=== PATIENT | female | born 1995 | race Caucasian/White ===

== ENCOUNTER 2017-05-20 13:20 | Inpatient (IN) | payer BC ==
[2017-05-20] MEDS ORDERED: OXYTOCIN/DEXTROSE 5%-WATER 30 UNITS/500 ML BAG IV ONE ×2 (13:23→19:28)
[2017-05-20] MEDS ORDERED: RINGERS SOLUTION,LACTATED 1,000 ML IV ONE ×2 (13:23)
[2017-05-20] MEDS ORDERED: LIDOCAINE HCL 50 ML VIAL PERI PRN (13:23)
[2017-05-20] MEDS ORDERED: DEXTROSE 5%-LACTATED RINGERS 1,000 ML IV PRN (13:23)
[2017-05-20] MEDS ORDERED: RINGERS SOLUTION,LACTATED 1,000 ML IV PRN (13:23)
[2017-05-20] MEDS ORDERED: ONDANSETRON HCL/PF 2 MG/ML VIAL IV PRN ×2 (13:23→14:34)
[2017-05-20] MEDS ORDERED: PENICILLIN G POTASSIUM 5 MILLIONUNT in DEXTROSE 5 % IN WATER 100 ML IV ONE ×2 (13:23)
[2017-05-20] MEDS ORDERED: ACETAMINOPHEN 500 MG TABLET PO ONE (13:59)
[2017-05-20] MEDS ORDERED: NALOXONE HCL 1 MG/1 ML SYRG IV PRN (14:34)
[2017-05-20] MEDS ORDERED: BUPIVACAINE HCL/0.9 % NACL/PF 250 ML EP PRN (14:34)
[2017-05-20] MEDS ORDERED: fentaNYL CITRATE/PF 50 MCG/ML AMPUL IT SCH (14:45)
[2017-05-20] MEDS ORDERED: BUTORPHANOL TARTRATE 2 MG/ML VIAL IV PRN (14:54)
[2017-05-20] MEDS ORDERED: BUTORPHANOL TARTRATE 2 MG/ML VIAL ONE (15:08)
--- NOTE | 2017-05-20 15:50 | OR ---
Anesthesia Procedure Note - Anesthesia Procedure Note Narrative: Vital Signs - Last Taken Temp 36.5 C 05/20/17 15:20 Pulse 94 05/20/17 15:20 Resp 20 05/20/17 15:20 BP 158/89 05/20/17 15:20 Pulse Ox 96 05/20/17 15:20 05/20/17 15:50 ANESTHESIA PROCEDURE NOTE Date of Procedure: 05/20/2017 Time of procedure: 1530. Performed by: Raghu Ferreira CRNA Ultrasonographer: None. Preprocedure diagnosis: Active labor. Post procedure diagnosis: Same. Procedure: Insertion of labor epidural. Indications: The patient is a 21 -year-old prima para female in active labor requesting labor epidural for pain management. Findings: See below. Details of the procedure: The patient was placed in a sitting position. Back was prepped with DuraPrep. Patient was then draped in a sterile fashion. Lidocaine 1% was infiltrated to the skin and subcutaneous tissues at the level of the L3 4 interspace. The epidural space was identified using a 18-gauge Tuohy needle with [id number] technique. 20 mcg fentanyl was given intrathecally using a 27 ga. spinal needle. Epidural catheter was inserted without difficulty. Negative test dose was elicited using 5 mL of 1.5% preservative-free lidocaine plus epinephrine 1 200,000. The epidural catheter was then taped and secured in place. EBL: Minimal. Fluids: N/A. Specimen: N/A. Post procedure condition: The patient tolerated the procedure well. No complications were noted. Thank you for this consultation. Benson CRNA
[2017-05-20] MEDS ORDERED: PENICILLIN G POTASSIUM 2.5 MILLIONUNT in DEXTROSE 5 % IN WATER 100 ML IV SCH ×2 (17:24)
--- NOTE | 2017-05-20 17:41 | PN ---
Subjective Subjective Narrative: comfortable after epidural Objective Objective Narrative: /-1, forebag broken with clear fluid FHTs: 150's, mod leonor, + accels, no decel [place]: q2-3min Cont. current plan and anticipate . Peds updated. - Vitals Vitals: Last Vital Signs Temp 36.5 C 05/20/17 15:20 Pulse 94 05/20/17 15:20 Resp 20 05/20/17 15:20 BP 158/89 05/20/17 15:20 Pulse Ox 96 05/20/17 15:20 Cauti Physician Documentation - Urinary Catheter Management Urethral (Russell) Date of Insertion: 05/20/17 Time of Insertion: 15:55
[2017-05-20] MEDS ORDERED: GLYCERIN/WITCH HAZEL LEAF 40 APPL BOX TP PRN (19:28)
[2017-05-20] MEDS ORDERED: oxyCODONE HCL/ACETAMINOPHEN 1 TAB TABLET PO PRN (19:28)
[2017-05-20] MEDS ORDERED: HYDROCORTISONE 30 APPL TUBE TP PRN (19:28)
[2017-05-20] MEDS ORDERED: BISACODYL 10 MG SUPP.RECT RC PRN (19:28)
[2017-05-20] MEDS ORDERED: BENZOCAINE/MENTHOL 81 SPRAY CAN TP PRN (19:28)
--- NOTE | 2017-05-20 19:33 | OR ---
Operative Report - Dictated Report Narrative: Spontaneous Vaginal Delivery with a problem of unknown duration Viable female with APGARS of 9 at 1 minute and 9 at 5 minutes. Presentation was MANJIT at 1858. No nuchal cord was noted. Patient delivered over 2 contractions. Weight: 6 pounds 0.8 ounces Placenta was delivered spontaneously and intact. This will be sent to pathology. A first-degree midline vaginal laceration that was repaired and a right first- degree labial laceration that was repaired. Estimated blood loss: 200 ml Mother and baby tolerated delivery well. History for Definition: * The number of deliveries resulting in a live the patient experienced prior to current hospitalization * The previous delivery of live twins or any live multiple gestation is considered one live event. *If primagravida or nulliparous is documented select zero for the number of previous live births. Live Events: 0
[2017-05-20] MEDS: oxyCODONE HCL/ACETAMINOPHEN 1 TAB TABLET PO PRN (23:05)
--- NOTE | 2017-05-20 23:58 | OR ---
Anesthesia Procedure Note - Anesthesia Procedure Note Narrative: Vital Signs - Last Taken Temp 37.5 C 05/20/17 22:45 Pulse 119 H 05/20/17 22:05 Resp 18 05/20/17 22:45 BP 136/88 05/20/17 22:45 Pulse Ox 98 05/20/17 22:45 O2 Oxygen Delivery Method Room Air 05/20/17 23:56 ANESTHESIA PROCEDURE NOTE Date of procedure: 05/20/2017. Time of procedure: 2330. Performed by: Raghu Ferreira CRNA Retina Subspecialist: Alejandra Montgomery RN . Preprocedure diagnosis: Previous . Block for postop analgesia. Post procedure diagnosis: Same. Procedure:TAP Block Indications: Postoperative analgesia. Findings: Ultrasound-guided bilateral TAP block. 20 mL of 0.25% Marcaine with epinephrine 1 200,000 was given per side. 22-gauge Stimuplex regional block needle and ChloraPrep prep was used. Images retained and stored in radiology database EBL: Minimal. Fluids: N/A. Specimen: N/A. Post procedure condition: The patient tolerated the procedure well. No complications were noted. Thank you for this consultation Raghu Ferreira CRNA
[2017-05-21] MEDS: DOCUSATE SODIUM 100 MG CAPSULE PO SCH ×3 (02:58→20:25)
[2017-05-21] MEDS: IBUPROFEN 800 MG TABLET PO PRN (03:08)
[2017-05-21] MEDS: oxyCODONE HCL/ACETAMINOPHEN 1 TAB TABLET PO PRN ×3 (08:55→18:33)
[2017-05-21] MEDS ORDERED: RHO(D) IMMUNE GLOBULIN 300 MCG DISP.SYRIN IM ONE (09:00)
--- NOTE | 2017-05-21 09:43 | PN ---
Progess Note - Interim Narrative: 05/21/17 09:41 progress note Subjective: The patient is doing well. She is ambulating, voiding, tolerating by mouth. She has minimal pain and moderate lochia. Objective: General: No acute distress Abdomen: Soft, nontender, fundus is firm just below the umbilicus Extremities: minimal edema, nontender to palpation Assessment and plan: day 1 Feeding: breast Pain: Controlled with by mouth medication Routine care.
[2017-05-21] MEDS ORDERED: RHO(D) IMMUNE GLOBULIN 300 MCG DISP.SYRIN IM PRN (12:46)
[2017-05-22] MEDS: SENNOSIDES 8.6 MG TABLET PO PRN ×2 (02:05→15:07)
[2017-05-22] MEDS: DOCUSATE SODIUM 100 MG CAPSULE PO SCH ×2 (07:59→21:03)
--- NOTE | 2017-05-22 12:28 | PN ---
Progess Note - Interim Narrative: 05/22/17 12:26 progress note Subjective: The patient is doing well. She is ambulating, voiding, tolerating by mouth. She has minimal pain and moderate lochia. Objective: General: No acute distress Abdomen: Soft, nontender, fundus is firm just below the umbilicus Extremities: minimal edema, nontender to palpation Assessment and plan: day 2 Feeding: Breast Pain: Controlled with by mouth medication Routine care.
[2017-05-22] MEDS: IBUPROFEN 800 MG TABLET PO PRN ×2 (15:02→23:50)
[2017-05-22 19:35] VITALS: BP 127/58
[2017-05-22] MEDS: oxyCODONE HCL/ACETAMINOPHEN 1 TAB TABLET PO PRN (23:50)
== END 2017-05-22 23:55 | disposition home or self-care (01) | DRG 774 ==
LOC: OB 13:20 → MS 05-21 18:07
PROVIDERS: ADMIT Obstetrics & Gynecology Gynecologic Oncology; ATTEND Obstetrics & Gynecology Gynecologic Oncology
PROC: 10E0XZZ Delivery of Products of Conception, External Approach (ICD-10-PCS; principal; 2017-05-20)
PROC: 4A1HXCZ Monitoring of Products of Conception, Cardiac Rate, External Approach (ICD-10-PCS; 2017-05-20)
PROC: 0HQ9XZZ Repair Perineum Skin, External Approach (ICD-10-PCS; 2017-05-20)
PROC: 00HU33Z Insertion of Infusion Device into Spinal Canal, Percutaneous Approach (ICD-10-PCS; 2017-05-20)
DX: O99.824 Streptococcus B carrier state complicating childbirth (principal); O99.834 Other infection carrier state complicating childbirth; O98.32 Other infections with a predominantly sexual mode of transmission complicating childbirth; A60.04 Herpesviral vulvovaginitis; O70.0 First degree perineal laceration during delivery; D64.9 Anemia, unspecified; Z79.899 Other long term (current) drug therapy; Z3A.36 36 weeks gestation of pregnancy; Z37.0 Single live birth
CPT/HCPCS: 59025; 85460; 88307; J2405; J2790

== ENCOUNTER 2018-07-17 06:00 | Inpatient (IN) ==
[~2018-07-17 06:00] MED LIST: LIDOCAINE HCL 50 ML VIAL PERI PRN; NALBUPHINE HCL 10 MG/ML AMPUL IV PRN; ONDANSETRON HCL/PF 2 MG/ML VIAL IV PRN; OXYTOCIN/DEXTROSE 5%-WATER 30 UNITS/500 ML BAG IV ONE; PENICILLIN G POTASSIUM 2.5 MILLIONUNT in DEXTROSE 5 % IN WATER 100 ML IV SCH; PENICILLIN G POTASSIUM 5 MILLIONUNT in DEXTROSE 5 % IN WATER 100 ML IV ONE; RINGER'S SOLUTION,LACTATED 1,000 ML IV PRN
[2018-07-17] MEDS ORDERED: OXYTOCIN/DEXTROSE 5%-WATER 30 UNITS/500 ML BAG IV ONE ×2 (06:20→13:20)
[2018-07-17] MEDS ORDERED: ONDANSETRON HCL/PF 2 MG/ML VIAL IV PRN ×2 (06:20→09:28)
[2018-07-17] MEDS ORDERED: NALBUPHINE HCL 10 MG/ML AMPUL IV PRN ×2 (06:20)
[2018-07-17] MEDS ORDERED: LIDOCAINE HCL 50 ML VIAL PERI PRN (06:20)
[2018-07-17] MEDS ORDERED: PENICILLIN G POTASSIUM 5 MILLIONUNT in DEXTROSE 5 % IN WATER 100 ML IV ONE ×2 (06:30)
[2018-07-17] MEDS: RINGER'S SOLUTION,LACTATED 1,000 ML IV PRN ×2 (06:40→10:37)
--- NOTE | 2018-07-17 08:55 | HP ---
Chief Complaint - Chief Complaint Date of Service: 07/17/18 Time of Service: 08:51 Chief Complaint: labor induction History of Present Illness: The patient presents to L&D for an elective IOL. She is petty with pitocin but is not feeling her ctx. She denies vaginal bleeding or loss of fluid. Fetus is active. Medical History (Last Reviewed 06/09/18 @ 11:35 by Anai Ruffin) GERD (gastroesophageal reflux disease) Onset Date: ~2017 HSV (herpes simplex virus) infection Onset Date: ~12/20/17 History of delivery, currently Onset Date: ~12/20/17 Short interval between pregnancies affecting , antepartum Onset Date : ~12/20/17 Elevated blood pressure affecting , antepartum Onset Date: ~11/10/16 Metacarpal bone fracture Onset Date: ~2002 Anemia Onset Date: ~03/24/17 Surgical History: Surgical History (Last Reviewed 06/09/18 @ 11:35 by Anai Ruffin) History of appendectomy Onset Date: ~10/16/14 Family History: Family History (Last Reviewed 06/09/18 @ 11:35 by Anai Ruffin) Father Cancer Grandfather Diabetes Cancer Grandfather Cancer Mother Alive and well Sister History of heart murmur in childhood Social History: Preferred Language Indonesian Abuse History No History of abuse Psych History No pertinent hx Review Of Systems (GEN) - Review of Systems EENTM: Present: No Symptoms Reported Respiratory: Present: No Symptoms Reported Cardiac: Present: No Symptoms Reported Abdominal: Present: No Symptoms Reported Genitourinary: Present: No Symptoms Reported Musculoskeletal: Present: No Symptoms Reported Neurological: Present: No Symptoms Reported Skin: Present: No Symptoms Reported Endocrine: Present: No Symptoms Reported Immunizations: IMMUNIZATION HX Immunizations Up to Date Yes History of Influenza Vaccine Yes Allergies/Adverse Reactions: Allergies Allergy/AdvReac Type Severity Reaction Status Date / Time No Known Allergies Allergy Verified 07/05/18 15:44 Home Medications: HOME MEDICATIONS Vits96/Iron Fum/Folic [ S] 1 tab PO DAILY 05/20/17 [Last Taken 06/28/18 08:00] famotidine 20 mg tablet 20 mg PO BID #60 tab 06/28/18 [Last Taken 07/17/18 02:30 ] valacyclovir 1 gram tablet 1,000 mg PO DAILY #30 tab 06/28/18 [Last Taken 02:30] Acetaminophen [Tylenol] 1,000 mg PO QPM PRN 06/30/18 [Last Taken 07/17/18 02:30] Exam - Exam Vital Signs: Vital Signs - Last Taken Temp 36.5 C 07/17/18 07:53 Pulse 104 H 07/17/18 07:53 Resp 18 07/17/18 07:53 BP 120/57 07/17/18 07:53 Pulse Ox 99 07/17/18 07:53 Constitutional: Present: Alert, Oriented x3, Cooperative, No distress Respiratory: Present: chest non-tender, lungs clear, normal breath sounds, no respiratory distress Cardiovascular/Chest: Present: normal peripheral pulses, regular rate, rhythm, no murmur Abdomen: Present: Normal bowel sounds, soft, nontender Extremity: Present: normal range of motion, non-tender, no calf tenderness Skin Exam: Present: normal color, warm/dry, no cyanosis Appearance: Present: appropriate appearance Eye contact: Present: cooperative Thoughts: Present: normal thought pattern Diagnostic Studies: Laboratory Results Blood Type O Negative 07/17/18 06:10 Antibody Screen Negative 07/17/18 06:10 Assessment/Plan - Narrative Narrative: Elective IOL at 39 weeks GBS prophylaxis
--- NOTE | 2018-07-17 08:56 | PN ---
Progess Note - Interim Date: 07/17/18 Time: 08:55 Narrative: 07/17/18 08:55 Pt is comfortable AROM for clear fluid Fetus is cat 1 Continue to titrate pitocin up
[2018-07-17] MEDS ORDERED: BUPIVACAINE HCL/0.9 % NACL/PF 250 ML EP PRN (09:28)
[2018-07-17] MEDS ORDERED: NALOXONE HCL 1 MG/1 ML SYRG IV PRN (09:28)
[2018-07-17] MEDS ORDERED: fentaNYL CITRATE/PF 50 MCG/ML AMPUL IT SCH (09:30)
--- NOTE | 2018-07-17 09:42 | ANES ---
Anesthesia Pre Procedure Eval Vitals/Labs: Last Vital Signs Temp 36.5 C 07/17/18 07:53 Pulse 104 H 07/17/18 07:53 Resp 18 07/17/18 07:53 BP 120/57 07/17/18 07:53 Pulse Ox 99 07/17/18 07:53 HOME MEDICATIONS Vits96/Iron Fum/Folic [ S] 1 tab PO DAILY 05/20/17 [Last Taken 06/28/18 08:00] famotidine 20 mg tablet 20 mg PO BID #60 tab 06/28/18 [Last Taken 07/17/18 02:30 ] valacyclovir 1 gram tablet 1,000 mg PO DAILY #30 tab 06/28/18 [Last Taken 02:30] Acetaminophen [Tylenol] 1,000 mg PO QPM PRN 06/30/18 [Last Taken 07/17/18 02:30] Allergies/Adverse Reactions: Allergies Allergy/AdvReac Type Severity Reaction Status Date / Time No Known Allergies Allergy Verified 07/05/18 15:44 - Planned Procedure Planned Procedure: ELECTIVE INDUCTION Medication List Reviewed:: Yes Allergies Verified: Yes Medical History (Last Reviewed 07/17/18 @ 09:41 by Irving Bundy CRNA) GERD (gastroesophageal reflux disease) Onset Date: ~2017 HSV (herpes simplex virus) infection Onset Date: ~12/20/17 History of delivery, currently Onset Date: ~12/20/17 Short interval between pregnancies affecting , antepartum Onset Date : ~12/20/17 Elevated blood pressure affecting , antepartum Onset Date: ~11/10/16 Metacarpal bone fracture Onset Date: ~2002 Anemia Onset Date: ~03/24/17 Surgical History (Last Reviewed 07/17/18 @ 09:41 by Irving Bundy CRNA) History of appendectomy Onset Date: ~10/16/14 Family History (Last Reviewed 07/17/18 @ 09:41 by Irving Bundy CRNA) Father Cancer Grandfather Diabetes Cancer Grandfather Cancer Mother Alive and well Sister History of heart murmur in childhood - Family Anesthesia History Family History:: no untoward family reactions to anesthesia, no familial bleeding tendencies, no family history of clotting disorders, no family history of premature - Airway/Neck/Teeth Within Normal Limits:: Yes Teeth Condition: Intact Denture Type: Full- Upper & Lower Neck Exam: non-tender, full range of motion, normal alignment Mallampatti Score: 2 Thyromental (T-M) distance: > 6 cm Mandibulo Hyoid distance: > 3 cm - Respiratory Respiratory: chest non-tender, lungs clear, normal breath sounds Smoking Status: Never smoker Sleep Apnea currently treated: No Sleep Apnea by current assessment: No - Cardiovascular Patient History - Cardiac/Respiratory: No pertinent hx Tolerates Activity: Good Heart Sounds: S1 & S2, Regular - Anesthesia Assessment and Plan ASA Class: PS, II, E Anesthesia Type Plan: Epidural - CSE for labor analgesia
--- NOTE | 2018-07-17 10:13 | ANES ---
Post Anesthesia Discharge - Transfer of Care Transfer of Care handoff given to nurse: Yes - Discharge to ASU Discharge to ASU-no complications/pt stable: Yes - comfortable at this point
--- NOTE | 2018-07-17 10:16 | ANES ---
Anesthesia Procedure Note Procedure Note: ANESTHESIA PROCEDURE NOTE Date of Procedure: 07/17/2018 Time of procedure: 1939.. Performed by: MOLLY Augustin CRNA, MSN Shorthand Reporter: Hien Armenta RN. Preprocedure diagnosis: Active labor, and pain. Post procedure diagnosis: Same. Procedure:Epidural for labor analgesia L3 4. Indications: Labor pain. Findings: See below. Details of the procedure: The patient was placed on the side of the bed in sitting positionand prepped with DuraPrep then draped in a sterile fashion. Lidocaine 1% was infiltrated to the skin and subcutaneous tissues at the level of the L3 4 interspace. An 18-gauge Touhy needle was used to approach the epidural space with loss of resistance technique. Once loss of resistance was achieved a 27-gauge spinal needle was passed through the epidural needle and CSF was contacted. After CSF returned, 20 mcg of fentanyl was injected in the spinal needle was removed the epidural catheter was then threaded approximately 4 cm in the epidural needle was removed. The catheter was taped in place and after careful aspiration 3 mL of 1.5% lidocaine with 1-200,000 epinephrine was injected without change in maternal heart rate or sensorium. . EBL: Minimal. Fluids: N/A. Specimen: N/A. Post procedure condition: The patient tolerated the procedure well with good relief. No complications were noted. Thank you for this consultation. Irving Bundy CRNA, ARNP, MSN
[2018-07-17] MEDS ORDERED: PENICILLIN G POTASSIUM 2.5 MILLIONUNT in DEXTROSE 5 % IN WATER 100 ML IV SCH ×2 (10:30)
--- NOTE | 2018-07-17 10:52 | ANES ---
Post Anesthesia Assessment - Vital Signs Vitals: Last Vital Signs Temp 36.5 C 07/17/18 07:53 Pulse 104 H 07/17/18 07:53 Resp 18 07/17/18 07:53 BP 120/57 07/17/18 07:53 Pulse Ox 99 07/17/18 07:53 Airway Patency: Normal - Mental Status Level Of Consciousness: Awake - Pain Level Pain Score: 0 - N/V Assessment Nausea/Vomiting Presence: None Dehydration:: No
[2018-07-17] MEDS ORDERED: BENZOCAINE/MENTHOL 81 SPRAY CAN TP PRN (13:20)
[2018-07-17] MEDS ORDERED: GLYCERIN/WITCH HAZEL LEAF 40 APPL BOX TP PRN (13:20)
[2018-07-17] MEDS ORDERED: ACETAMINOPHEN 325 MG TABLET PO PRN (13:20)
[2018-07-17] MEDS ORDERED: HYDROcodone/ACETAMINOPHEN 1 EACH TABLET PO PRN (13:20)
[2018-07-17] MEDS ORDERED: SENNOSIDES 8.6 MG TABLET PO PRN (13:20)
[2018-07-17] MEDS ORDERED: ACETAMINOPHEN 500 MG TABLET PO PRN (13:20)
[2018-07-17] MEDS ORDERED: HYDROCORTISONE 30 APPL TUBE TP PRN (13:20)
[2018-07-17] MEDS ORDERED: IBUPROFEN 800 MG TABLET PO PRN (13:20)
[2018-07-17] MEDS ORDERED: BISACODYL 10 MG SUPP.RECT RC PRN (13:20)
[2018-07-17] MEDS: IBUPROFEN 800 MG TABLET PO PRN ×2 (14:42→22:17)
--- NOTE | 2018-07-17 14:45 | OR ---
Operative Report - Dictated Report Narrative: The patient is a 22 yo at 39 0/7 weeks who presented to L&D for an elective IOL. The was induced with oxytocin and AROM. She progressed to complete dilation. Date of delivery: 07/17/18 Time of delivery: 1300 Gender: female Birthweight: 3588 grams APGARS: 9/9 The patient delivered a viable female in the direct OA presentation. Cord clamping was delayed for 60 seconds. The placenta was removed by expression and appeared intact. Lacerations: 1st degree perineal laceration which was repaired with 2-0 vicryl in the standard surgical fashion EBL: 150 mL Complications: none Definition: * The number of deliveries resulting in a live the patient experienced prior to current hospitalization * The previous delivery of live twins or any live multiple gestation is considered one live event. *If primagravida or nulliparous is documented select zero for the number of previous live births. Live Births: 0
[2018-07-17] MEDS: DOCUSATE SODIUM 100 MG CAPSULE PO SCH (20:36)
[2018-07-18] MEDS: HYDROcodone/ACETAMINOPHEN 1 EACH TABLET PO PRN ×4 (02:15→21:37)
[2018-07-18] MEDS: IBUPROFEN 800 MG TABLET PO PRN ×2 (06:36→17:53)
--- NOTE | 2018-07-18 08:00 | PN ---
Subjective - Date and Time Seen Date: 07/18/18 Time: 07:58 Subjective Narrative: Pt without complaints Objective Objective Narrative: See vital signs - Review of Systems Generalized/Overall Review: Reports: No Symptoms Reported Misc: All systems neg except as marked - Vitals Vitals: Last Vital Signs Temp 36.1 C 07/18/18 06:43 Pulse 84 07/18/18 06:43 Resp 16 07/18/18 06:43 BP 124/74 07/18/18 06:43 Pulse Ox 99 07/18/18 06:43 - Exam Constitutional: Present: Alert, Oriented x3, Cooperative, No distress Abdomen: Present: soft, nontender - uterus is firm Extremity: Present: non-tender, no calf tenderness Skin Exam: Present: normal color, warm/dry, no cyanosis Appearance: Present: appropriate appearance Eye contact: Present: cooperative Thoughts: Present: normal thought pattern Cauti Physician Documentation - Urinary Catheter Management Urethral (Russell) Urethral Indwelling: No Date of Insertion: 07/17/18 Time of Insertion: 10:15 Date of Removal: 07/17/18 Time of Removal: 12:50 Assessment/Plan Plan Narrative: PPD 1 s/p Doing well Discharge tomorrow
[2018-07-18] MEDS: DOCUSATE SODIUM 100 MG CAPSULE PO SCH ×2 (09:42→21:37)
[2018-07-19] MEDS: DOCUSATE SODIUM 100 MG CAPSULE PO SCH (08:28)
--- NOTE | 2018-07-19 08:36 | PN ---
Subjective - Date and Time Seen Date: 07/19/18 Time: 08:34 Subjective Narrative: Pt without complaints. Bleeding is much improved. Objective Objective Narrative: See vital signs - Review of Systems Generalized/Overall Review: Reports: No Symptoms Reported Misc: All systems neg except as marked - Vitals Vitals: Last Vital Signs Temp 36.4 C 07/19/18 06:41 Pulse 76 07/19/18 06:41 Resp 16 07/19/18 06:41 BP 128/73 07/19/18 06:41 Pulse Ox 97 07/19/18 06:41 - Exam Constitutional: Present: Alert, Oriented x3, Cooperative, No distress Abdomen: Present: soft, nontender - fundus is firm and nontender Extremity: Present: non-tender, no calf tenderness Skin Exam: Present: normal color, warm/dry, no cyanosis Appearance: Present: appropriate appearance Eye contact: Present: cooperative Thoughts: Present: normal thought pattern Cauti Physician Documentation - Urinary Catheter Management Urethral (Russell) Urethral Indwelling: No Date of Insertion: 07/17/18 Time of Insertion: 10:15 Date of Removal: 07/17/18 Time of Removal: 12:50 Assessment/Plan Plan Narrative: PPD 2 s/p Discharge today
[2018-07-19 12:29] VITALS: BP 126/71
== END 2018-07-19 12:49 | disposition home or self-care (01) | DRG 774 ==
LOC: OB 06:00
PROVIDERS: ADMIT Obstetrics & Gynecology; ATTEND Obstetrics & Gynecology
CPT/HCPCS: 59025; 86850; 86900